=== PATIENT | male | born 1980 | race Caucasian/White ===

== ENCOUNTER 2017-03-16 18:11 | Inpatient (IN) | payer MEDICAID, OTHER ==
[~2017-03-16] VITALS: Ht 175.3 cm; Wt 102.6 kg
[2017-03-16] MEDS ORDERED: ALPR0.255 PO (18:19)
[2017-03-16] MEDS ORDERED: ZOLP5 PO (18:19)
[2017-03-16] MEDS ORDERED: BUSP5TAB20 PO (18:19)
[2017-03-16] MEDS ORDERED: DiphenhydrAMINE HCL 50 MG/ML VIAL IM ONE (19:30)
[2017-03-16] MEDS ORDERED: HALOPERIDOL LACTATE 5 MG/ML VIAL IM ONE (19:30)
[2017-03-16] MEDS ORDERED: LORazepam 2 MG/ML VIAL IM ONE (19:30)
[2017-03-16] MEDS ORDERED: MAG HYDROX/AL HYDROX/SIMETH ES 30 ML SUSPENSION UDCUP PO PRN (19:45)
[2017-03-16] MEDS ORDERED: HALOPERIDOL 5 MG TABLET PO PRN (19:45)
[2017-03-16] MEDS ORDERED: MAGNESIUM HYDROXIDE SUSPENSION 30 ML UDCUP PO PRN (19:45)
[2017-03-16 19:49] LABS: BASOPHILS # (AUTO) 0.04 K/uL (0.00-0.20); BASOPHILS % (AUTO) 0.5 % (0.0-2.0); EOSINOPHILS % (AUTO) 1.14 % (1.0-6.0); HEMATOCRIT 48.6 % (41-53); HEMOGLOBIN 16.5 g/dL (13.5-17.5); LYMPHOCYTES # (AUTO) 3.1 K/uL (1.0-4.8); LYMPHOCYTES % (AUTO) 36.6 % (22.0-44.0); MEAN CORPUSCULAR HEMOGLOBIN 30.3 pg (26.0-34.0); MEAN CORPUSCULAR VOLUME 89 fL (80-100); MONOCYTES # (AUTO) 0.7 K/uL (0.1-1.0); MONOCYTES % (AUTO) 8.1 % (2.0-9.0); NEUTROPHILS # (AUTO) 4.5 K/uL (1.8-7.7); NEUTROPHILS % (AUTO) 53.6 % (40.0-70.0); PLATELET COUNT (AUTO) 261 K/uL (150-450); RED BLOOD CELL COUNT(AUTO) 5.45 MIL/uL (4.50-5.90); RED CELL DISTRIBUTION WIDTH 13.5 % (11.5-14.5); WHITE BLOOD COUNT (AUTO) 8.4 K/uL (4.5-11.0)
[2017-03-16 20:17] LABS: ANION GAP 10 mmol/L (8-16); CALCIUM, TOTAL 8.7 mg/dL (8.8-10.5); CARBON DIOXIDE 28 mmol/L (22-29); CHLORIDE 98 mmol/L (98-107); CREATININE 1.12 mg/dL (0.60-1.30); GLOMERULAR FILTR. RATE CALC > 60 mL/min (>60); POTASSIUM 3.9 mmol/L (3.5-5.1); SODIUM SERUM 136 mmol/L (136-145); UREA NITROGEN, BLOOD 17 mg/dL (7-18)
[2017-03-16 20:23] LABS: ALANINE AMINOTRANSFERASE 42 U/L (12-78); ALBUMIN 3.9 g/dL (3.4-5.0); ASPARTATE AMINOTRANSFERASE 13 U/L (15-37); BILIRUBIN,TOTAL 0.3 mg/dL (0.1-1.0); TOTAL PROTEIN, SERUM 7.5 g/dL (6.4-8.2)
[2017-03-17] MEDS: ACETAMINOPHEN 325 MG TABLET PO PRN ×2 (01:52→15:52)
[2017-03-17] MEDS: LORazepam 2 MG TABLET PO PRN ×2 (01:52→15:51)
[2017-03-17] MEDS: ZOLPIDEM TARTRATE 10 MG TABLET PO PRN ×3 (05:15→23:32)
[2017-03-17 08:05] LABS: CHOL/HDL RATIO 7.9 (4.2-7.3)
[2017-03-17 13:37] LABS: GLUCOSE,POINT OF CARE 304 MG/DL (70-110)
[2017-03-17 20:32] LABS: GLUCOSE,POINT OF CARE 215 MG/DL (70-110)
[2017-03-18 00:48] VITALS: BP 124/90
[2017-03-18 06:23] LABS: GLUCOSE,POINT OF CARE 229 MG/DL (70-110)
[2017-03-18 08:34] VITALS: BP 145/88
[2017-03-18] MEDS ORDERED: MAGNESIUM HYDROXIDE SUSPENSION 30 ML UDCUP PO PRN (09:00)
[2017-03-18] MEDS ORDERED: ONDANSETRON HCL 4 MG TABLET PO PRN (09:00)
[2017-03-18] MEDS ORDERED: BACITRACIN 28.4 GM OINTMENT TP PRN (09:00)
[2017-03-18] MEDS ORDERED: DEXTROSE 50%-WATER 25 GM/50 ML SYRINGE IVP PRN (09:00)
[2017-03-18] MEDS ORDERED: MAG HYDROX/AL HYDROX/SIMETH ES 30 ML SUSPENSION UDCUP PO PRN (09:00)
[2017-03-18] MEDS ORDERED: PETROLATUM,WHITE 71 GM JELLY TP PRN (09:00)
[2017-03-18] MEDS ORDERED: BENZOCAINE/MENTHOL LOZENGE [8 LOZENGES/PACKET] MM PRN (09:00)
[2017-03-18] MEDS ORDERED: IBUPROFEN 600 MG TABLET PO PRN (09:00)
[2017-03-18] MEDS ORDERED: ACETAMINOPHEN 325 MG TABLET PO PRN (09:00)
[2017-03-18] MEDS ORDERED: ALBUTEROL SULFATE HFA 90 MCG/PUFF 8 GM INHALER IH PRN (09:00)
[2017-03-18] MEDS ORDERED: LOPERAMIDE HCL 2 MG CAPSULE PO PRN ×2 (09:00→13:30)
[2017-03-18] MEDS ORDERED: CloNIDine HCL 0.1 MG TABLET PO PRN (09:00)
[2017-03-18] MEDS: OMEGA-3/DHA/EPA/FISH OIL 1,000 MG CAPSULE PO SCH (09:20)
[2017-03-18] MEDS: INSULIN ASPART 100 UNITS/ML SQ PRN ×2 (11:17→17:19)
[2017-03-18 11:22] LABS: GLUCOSE COMMENT 1 Received Meds; GLUCOSE,POINT OF CARE 235 MG/DL (70-110)
[2017-03-18] MEDS ORDERED: HydrOXYzine PAMOATE 50 MG CAPSULE PO PRN (13:30)
[2017-03-18] MEDS ORDERED: OLANZapine 5 MG RAPDIS TABLET PO PRN (13:30)
[2017-03-18] MEDS ORDERED: GuaiFENesin/D-METHORPHAN [SUGAR-FREE] 200-20MG/10 ML SYRUP UDCUP PO PRN (13:30)
[2017-03-18] MEDS: THIAMINE HCL 100 MG TABLET PO SCH (17:17)
[2017-03-18] MEDS: MetFORMIN HCL 500 MG TABLET PO SCH (17:17)
[2017-03-18 17:23] LABS: GLUCOSE,POINT OF CARE 234 MG/DL (70-110)
[2017-03-18] MEDS ORDERED: DULO20CA30 PO (17:42)
[2017-03-18] MEDS ORDERED: PREG25 PO (17:42)
[2017-03-18 19:57] VITALS: BP 123/85
[2017-03-18 20:12] LABS: GLUCOSE,POINT OF CARE 290 MG/DL (70-110)
[2017-03-18] MEDS ORDERED: OLANZapine 5 MG RAPDIS TABLET PO SCH (21:00)
[2017-03-18] MEDS: ZOLPIDEM TARTRATE 10 MG TABLET PO PRN (21:15)
[2017-03-19 03:50] VITALS: BP 129/87
[2017-03-19 06:17] LABS: GLUCOSE,POINT OF CARE 248 MG/DL (70-110)
[2017-03-19] MEDS: MetFORMIN HCL 500 MG TABLET PO SCH (06:56)
[2017-03-19 07:03] LABS: HEMOGLOBIN A1C 9.3 % (4.5-6.2)
[2017-03-19] MEDS: INSULIN ASPART 100 UNITS/ML SQ PRN ×2 (07:03→11:46)
[2017-03-19 07:07] LABS: THYROID STIMULATING HORMONE 0.39 uIU/mL (0.36-3.74)
[2017-03-19] MEDS ORDERED: METF500T4 PO (08:29)
[2017-03-19 08:30] VITALS: BP 135/99
[2017-03-19] MEDS ORDERED: DULoxetine HCL 20 MG CAPSULE PO SCH (09:00)
[2017-03-19] MEDS ORDERED: MULTIVITAMINS WITH MINERALS, THERAPEUTIC TABLET PO SCH (09:00)
[2017-03-19] MEDS ORDERED: FOLIC ACID 1 MG TABLET PO SCH (09:00)
[2017-03-19] MEDS: OMEGA-3/DHA/EPA/FISH OIL 1,000 MG CAPSULE PO SCH (09:33)
[2017-03-19] MEDS: THIAMINE HCL 100 MG TABLET PO SCH (09:33)
[2017-03-19] MEDS: PREGABALIN 25 MG CAPSULE PO SCH ×2 (09:34→12:16)
[2017-03-19 09:35] VITALS: BP 135/99
[2017-03-19 10:33] VITALS: BP 129/87
[2017-03-19 11:38] LABS: GLUCOSE COMMENT 1 Received Meds; GLUCOSE,POINT OF CARE 274 MG/DL (70-110)
== END 2017-03-19 13:00 | disposition home or self-care (01) | DRG 754 ==
LOC: EMS 18:13 → 3EI 03-18 00:23
PROVIDERS: ADMIT Psychiatry & Neurology Psychiatry; ATTEND Psychiatry & Neurology Psychiatry
DX: F32.9 Major depressive disorder, single episode, unspecified (principal); E11.65 Type 2 diabetes mellitus with hyperglycemia; I10 Essential (primary) hypertension; E66.9 Obesity, unspecified; E78.1 Pure hyperglyceridemia; E78.5 Hyperlipidemia, unspecified; F41.0 Panic disorder [episodic paroxysmal anxiety]; G47.00 Insomnia, unspecified; G89.29 Other chronic pain; K21.9 Gastro-esophageal reflux disease without esophagitis; K59.00 Constipation, unspecified; Z65.3 Problems related to other legal circumstances; Z68.33 Body mass index [BMI] 33.0-33.9, adult; Z79.899 Other long term (current) drug therapy; Z91.19 Patient's noncompliance with other medical treatment and regimen
CPT/HCPCS: 82306; 82962; 83036; 84443; 96372; 99285; G0480; J1200; J1630; J2060